=== PATIENT | female | born 1965 | race Caucasian/White ===

== ENCOUNTER 2022-01-10 04:47 | Emergency (ER) | payer BC, OTHER ==
[~2022-01-10] VITALS: Ht 165.1 cm; Wt 86.2 kg
[2022-01-10] MEDS ORDERED: KETOROLAC TROMETHAMINE 30 MG VIAL IVP ONE (05:00)
[2022-01-10] MEDS ORDERED: NACL 0.9% 1,000 ML IV ONE (05:00)
[2022-01-10 05:03] VITALS: BP_SYST 192
--- NOTE | 2022-01-10 05:05 | NUR ---
PT FROM HOME WITH C/O OF SHARP LEFT FLANK PAIN THAT RADIATES TO THE SIDE THAT STARTED AT 0150. PT REPORTING N/V AND DENIES FEVER. PT AMBULATORY AND A&O X4. PT BP 192/85, MADE AWARE.
--- NOTE | 2022-01-10 05:10 | NUR ---
Patient to ER bed 06 to gown for evaluation. Side rails up. Report given to ISABEL BRANHAM.
[2022-01-10] MEDS ORDERED: ONDANSETRON HCL 4 MG/2 ML VIAL IVP ONE (05:15)
--- NOTE | 2022-01-10 05:15 | NUR ---
MD AT BEDSIDE WITH PATIENT FOR EVALUATION.
--- NOTE | 2022-01-10 05:24 | NUR ---
# 22 gauge angiocath placed to L AC. Use of asceptic technique. Opsite placed over site. Blood return noted. Flushed with 10 cc of normal saline. No evidence of infiltration noted. Patient tolerated well.
[2022-01-10] MEDS ORDERED: HYDR-3917 PO (05:28)
[2022-01-10] MEDS ORDERED: ONDA8TAB60 PO (05:28)
[2022-01-10] MEDS ORDERED: IBUP-1971 PO (05:28)
[2022-01-10] MEDS ORDERED: TAMS-11 PO (05:28)
--- NOTE | 2022-01-10 05:30 | NUR ---
PT URINE COLLECTED FOR URINE DIP. URINE OTIS COMPLETED BY CHIRAG WEBB
--- NOTE | 2022-01-10 06:23 | NUR ---
Patient given written and verbal discharge instructions and verbalizes understanding. ER MD Keller discussed with patient the results and treatment provided. Patient in stable condition. ID arm band removed. IV catheter removed intact and dressing applied, no active bleeding. Rx sent to preferred pharmacy. Patient educated on pain management and to follow up with PMD. Opportunity for questions provided and answered. Medication side effect fact sheet provided.
[2022-01-10 06:24] VITALS: BP_SYST 159
== END 2022-01-10 06:23 | disposition home or self-care (01) ==
LOC: SED 04:47
DX: R10.9 Unspecified abdominal pain (principal); R11.2 Nausea with vomiting, unspecified; J45.909 Unspecified asthma, uncomplicated; Z88.0 Allergy status to penicillin; Z88.2 Allergy status to sulfonamides; Z79.899 Other long term (current) drug therapy
CPT/HCPCS: 99284; 96374; 96361; 96375; 81002; J1885; J2405; J7030